=== PATIENT | female | born 1935 | race African-American/Black ===

== ENCOUNTER 2017-01-09 15:03 | Emergency (ER) | payer OTHER ==
[~2017-01-09] VITALS: Ht 154.9 cm; Wt 66.0 kg
[~2017-01-09 15:03] MED LIST: ANUSOL1 SUPP PR; CAPOTEN12.5 MG PO; COUMADIN,JANTOVE5 MG PO; Capoten PO; HYDROCHLOROTHIA50 MG PO; Hydrodiuril,Oretic,E PO; K-DUR10 ME2 PO; K-DUR20 MEQ PO; POTASSIUM20 MEQ/11 PO; Vicodin,Lortab 5/500 PO
[2017-01-09 15:49] LABS: MCH 26.4 PG (29.0-34.0); MCHC 31.2 G/DL (30.0-36.0); MCV 84.7 FL (83-99); MEAN PLAT.VOLUME 9.8 uM^3 (9.5-12.4); PLATELET COUNT 257 K/uL (156-360); RBC DIS.WIDTH-CV 15.4 % (11.8-14.6); RBC DIS.WIDTH-SD 47.8 % (39-53); RED BLOOD COUNT 4.96 M/uL (3.80-5.20)
[2017-01-09 15:59] LABS: CHLORIDE 103 mEq/L (99-109); POTASSIUM 3.7 mEq/L (3.7-5.4); SODIUM 140 mEq/L (136-147)
[2017-01-09 16:01] LABS: GLUCOSE 96 mg/dL (70-99)
[2017-01-09 16:02] LABS: ANION GAP 9 MEQ/L (2-14)
[2017-01-09 16:05] LABS: GFR ESTIMATE (CALCULATED) > 59 mL/min/; UREA NITROGEN (BUN) 21 mg/dL (9-23)
[2017-01-09 19:16] VITALS: BP 155/72
== END 2017-01-09 19:18 | disposition home or self-care (01) ==
LOC: EME 15:03
DX: K62.89 Other specified diseases of anus and rectum (principal); K62.5 Hemorrhage of anus and rectum
CPT/HCPCS: 74177; 80048; 85027; 86900; 86901; 99281; 99284; J7030

== ENCOUNTER 2017-02-27 13:42 | Emergency (ER) | payer OTHER ==
[~2017-02-27] VITALS: Ht 152.4 cm; Wt 66.0 kg
[2017-02-27 15:21] LABS: HEMATOCRIT 39.1 % (36.0-46.0); MCH 27.3 PG (29.0-34.0); MCV 85.4 FL (83-99); MEAN PLAT.VOLUME 9.5 uM^3 (9.5-12.4); PLATELET COUNT 225 K/uL (156-360); RBC DIS.WIDTH-CV 14.7 % (11.8-14.6); RBC DIS.WIDTH-SD 45.8 % (39-53); RED BLOOD COUNT 4.58 M/uL (3.80-5.20); WHITE BLOOD COUNT 4.2 K/uL (4.1-10.2)
[2017-02-27 15:31] LABS: CHLORIDE 105 mEq/L (99-109); POTASSIUM 3.4 mEq/L (3.7-5.4); SODIUM 142 mEq/L (136-147)
[2017-02-27 15:32] LABS: GLUCOSE 98 mg/dL (70-99)
[2017-02-27 15:34] LABS: ANION GAP 8 MEQ/L (2-14)
[2017-02-27 15:36] LABS: GFR ESTIMATE (CALCULATED) > 59 mL/min/
[2017-02-27 15:37] LABS: UREA NITROGEN (BUN) 12 mg/dL (9-23)
[2017-02-27] MEDS ORDERED: COLACE100 MG PO (16:22)
[2017-02-27] MEDS ORDERED: SENNA8.6 MG PO (16:22)
[2017-02-27 16:37] VITALS: BP 149/73
== END 2017-02-27 16:38 | disposition home or self-care (01) ==
LOC: EME 13:42
DX: K64.4 Residual hemorrhoidal skin tags (principal); I11.0 Hypertensive heart disease with heart failure; I50.9 Heart failure, unspecified
CPT/HCPCS: 80048; 85027; 99281; 99283